=== PATIENT | female | born 1995 ===

== ENCOUNTER 2016-08-17 02:06 | Emergency (ER) | payer BC, OTHER ==
[2016-08-17 02:19] VITALS: BP 111/62; PULSE 100; RESP 16; TEMP 98.5; O2SAT 100
[2016-08-17] MEDS ORDERED: Dextrose 5%/0.45% NS 1,000 ML IV SCH (02:30)
--- NOTE | 2016-08-17 02:37 | ED PDOC ---
HPI: General Adult Time Seen by Provider: 08/17/16 02:20 Chief Complaint (Nursing): Alcohol Ingestion Chief Complaint (Provider): syncope History Per: Patient History/Exam Limitations: no limitations Onset/Duration Of Symptoms: Sudden Onset Have you had recent travel within the past 21 days to any of the following countries: [place], [place], [place] or [place]?: No Current Symptoms Are (Timing): Better Additional Complaint(s): 20yo female with PMHx including scoliosis presents to the ED for eval of syncopal episode [employer]. Patient reports brushing her teeth and suddenly becoming weak and lightheaded for 2 minutes and then had syncopal episode per brother who witnessed it and communicated it to mother. Brother caught the patient so she did not hit her head or lose consciousness. Patient admits to alcohol use tonight (4 margaritas). Has drank before and never had these symptoms before. Patient states she currently feels generally weak and sense of heaviness in extremities. No fever, cough, SOB, n/v. Past Medical History Reviewed: Historical Data, Nursing Documentation, Vital Signs Vital Signs: Last Vital Signs Temp 98.5 F 08/17/16 02:12 Pulse 100 H 08/17/16 02:12 Resp 16 08/17/16 02:12 BP 111/62 08/17/16 02:12 Pulse Ox 100 08/17/16 02:47 - Medical History Other PMH: scoliosis - Surgical History Surgical History: No Surg Hx - Family History Family History: States: No Known Family Hx - Social History Current smoker - smoking cessation education provided: No Alcohol: Occasional Drugs: Denies - Allergies Allergies/Adverse Reactions: Allergies Allergy/AdvReac Type Severity Reaction Status Date / Time No Known Allergies Allergy Verified 08/17/16 02:19 Review of Systems ROS Statement: Except As Marked, All Systems Reviewed And Found Negative Constitutional: Positive for: Weakness, Other (syncopal episode, lightheaded ). Negative for: Fever Respiratory: Negative for: Cough, Shortness of Breath Gastrointestinal: Negative for: Nausea, Vomiting Musculoskeletal: Positive for: Other (sense of heaviness in extremities ) Neurological: Positive for: Other (no LOC ) Physical Exam - Reviewed Nursing Documentation Reviewed: Yes Vital Signs Reviewed: Yes - Physical Exam Appears: Positive for: Well, No Acute Distress Head Exam: Positive for: ATRAUMATIC, NORMAL INSPECTION, NORMOCEPHALIC Skin: Positive for: Normal Color, Warm, Dry Eye Exam: Positive for: Normal appearance, EOMI, PERRL ENT: Positive for: Other (dry mucous membranes ). Negative for: Pharyngeal Erythema, Tonsillar Exudate, Tonsillar Swelling Neck: Positive for: Normal, Painless ROM, Supple Cardiovascular/Chest: Positive for: Regular Rate, Rhythm. Negative for: Murmur , Tachycardia Respiratory: Positive for: Normal Breath Sounds. Negative for: Wheezing, Respiratory Distress Gastrointestinal/Abdominal: Positive for: Normal Exam, Soft. Negative for: Tenderness Back: Positive for: Normal Inspection Extremity: Positive for: Normal ROM. Negative for: Deformity, Swelling Neurologic/Psych: Positive for: Alert, Oriented - Laboratory Results Result Diagrams: 08/17/16 02:46 08/17/16 02:46 - ECG O2 Sat by Pulse Oximetry: 100 Pulse Ox Interpretation: Normal (RA) Medical Decision Making Medical Decision Makin: Impression: 20yo female w/ syncopal event in setting of alcohol use Plan: CT head Labs IVF, Dextrose 1000mls/hr IV reassess 0304: CT head impression: No acute findings. 0346: Labs reviewed, no clinically significant findings. Patient reports improvement in symptoms and is stable for d/c. Dx: vasovagal syncope Improved Scribe Attestation: Documented by Janet Sparks acting as a scribe for Balbir Waddell MD. Provider Scribe Attestation: All medical record entries made by the Scribe were at my direction and personally dictated by me. I have reviewed the chart and agree that the record accurately reflects my personal performance of the history, physical exam, medical decision making, and the department course for this patient. I have also personally directed, reviewed, and agree with the discharge instructions and disposition. Disposition - Clinical Impression Clinical Impression: Vasovagal syncope - Patient ED Disposition Is Patient to be Admitted: No - Disposition Disposition: Routine/Home Disposition Time: 03:46 Condition: IMPROVED Instructions: Syncope (ED)
[2016-08-17 02:52] LABS: BASO % 0.7 % (0.0-2.0); EOS # 0.1 K/uL (0.0-0.7); EOS % 1.1 % (0.0-4.0); HEMOGLOBIN 12.8 g/dL (12.0-16.0); LYMPH # 2.1 K/uL (1.0-4.3); LYMPH % 36.9 % (20.0-40.0); MEAN CELL VOLUME 88.6 fl (81.0-99.0); MEAN CORPUSCULAR HEMOGLOBIN 29.7 pg (27.0-31.0); MEAN CORPUSCULAR HGB CONC 33.5 g/dL (33.0-37.0); MEAN PLATELET VOLUME 9.9 fl (7.2-11.7); MONO # 0.3 K/uL (0.0-0.8); MONO % 6.1 % (0.0-10.0); NEUT # 3.2 K/uL (1.8-7.0); NEUT % 55.2 % (50.0-75.0); NRBC % 0.1 % (0.0-0.0); RBC 4.32 Mil/uL (3.80-5.20); WHITE BLOOD COUNT 5.8 K/uL (4.8-10.8)
[2016-08-17 02:53] LABS: ALBUMIN 4.6 g/dL (3.5-5.0)
[2016-08-17 02:55] LABS: GFR AFRICAN-AMERICAN > 60; GFR NON-AFRICAN AMERICAN > 60
[2016-08-17 02:56] LABS: ALB/GLOB RATIO 1.4 (1.0-2.1); ALT/SGPT 25 U/L (9-52); AST/SGOT 22 U/L (14-36); BLOOD UREA NITROGEN 13 mg/dl (7-17); CALCIUM 9.5 mg/dL (8.4-10.2)
[2016-08-17 03:46] LABS: BARBITURATES, UR NEGATIVE (NEGATIVE)
[2016-08-17 03:47] LABS: BENZODIAZEPINES, UR NEGATIVE (NEGATIVE)
[2016-08-17 03:50] LABS: PHENCYCLIDINE, UR NEGATIVE (NEGATIVE)
[2016-08-17 04:03] LABS: OPIATES, UR NEGATIVE (NEGATIVE)
--- NOTE | 2016-08-17 08:57 | CT ---
PROCEDURE: CT Head Without Contrast HISTORY: Headache COMPARISON: None available. TECHNIQUE: Axial computed tomography images were obtained through the head/brain without intravenous contrast. Radiation dose (DLP): 759.97 mGy-cm. FINDINGS: There is normal parenchymal density. There is no acute intracranial hemorrhage, territorial infarction, mass, mass effect or abnormal extra-axial fluid collection. [place]-white matter differentiation is preserved. There is normal density in the large dural venous sinuses. The ventricles are normal in size, shape, and configuration. There is no calvarial fracture or extracranial soft tissue swelling.The included paranasal sinuses and mastoid air cells are clear. Both globes and orbits are within normal limits. IMPRESSION: No acute intracranial abnormality. A preliminary report was provided by [facility].
== END 2016-08-17 04:10 | disposition home or self-care (01) ==
LOC: H.ER 02:06
DX: R55 Syncope and collapse (principal)
CPT/HCPCS: 70450; 80053; 81025; 85025; 99283; G0480